=== PATIENT | male | born 1985 | race African-American/Black ===

== ENCOUNTER 2022-02-14 21:00 | Emergency (ER) | payer MEDICAID ==
[~2022-02-14] VITALS: Ht 185.4 cm; Wt 74.0 kg
[2022-02-14 22:39] LABS: HEMATOCRIT. 41.2 % (42.0-52.0); MEAN CORPUSCULAR HEMOGLOBIN 28.4 pg (28.0-32.0); MEAN CORPUSCULAR VOLUME 83.5 fL (80.0-94.0); MEAN PLATELET VOLUME 8.7 fl (7.4-10.4); PLATELET 214 x1000/uL (130-400); RED BLOOD CELL COUNT 4.94 mill/uL (4.7-6.1); RED CELL DISTRIBUTION WIDTH 14.8 % (11.6-14.6)
[2022-02-14 22:50] LABS: CHLORIDE 105 mEq/L (98-107)
[2022-02-14 22:57] LABS: PLATELET ESTIMATE NORMAL
[2022-02-14 22:58] LABS: ETHANOL BLOOD < 10 mg/dL
[2022-02-15] MEDS ORDERED: ACETAMINOPHEN 500MG TABLET PO ONE (04:30)
[2022-02-15 06:53] LABS: CLARITY URINE CLEAR (CLEAR); COLOR URINE YELLOW (YELLOW); KETONES URINE NEGATIVE (NEGATIVE); LEUKOCYTE ESTERASE URINE NEGATIVE (NEGATIVE); NITRITE URINE NEGATIVE (NEGATIVE); OCCULT BLOOD URINE 1+ (NEGATIVE); PH URINE 5.5 (4.5-8.0); PROTEIN URINE 3+ (NEGATIVE); UROBILINOGEN URINE 0.2 E.U./dL (0.2-1.0)
[2022-02-15 07:14] LABS: *AMPHETAMINES SCREEN URINE NEGATIVE (NEGATIVE); *BARBITURATES SCREEN URINE NEGATIVE (NEGATIVE); *BENZODIAZEPINES SCREEN URINE NEGATIVE (NEGATIVE); *COCAINE SCREEN URINE NEGATIVE (NEGATIVE); CANNABINOID URINE SCREEN NEGATIVE (NEGATIVE); METHADONE URINE SCREEN NEGATIVE (NEGATIVE); OPIATES URINE SCREEN NEGATIVE (NEGATIVE); PHENCYCLIDINE URINE SCREEN NEGATIVE (NEGATIVE)
[2022-02-15] MEDS ORDERED: ACETAMINOPHEN 325MG TABLET PO ONE ×2 (14:45→22:00)
[2022-02-15] MEDS: RISPERIDONE 1MG TABLET PO SCH (21:00)
[2022-02-16 08:00] VITALS: BP 151/96
[2022-02-16] MEDS: RISPERIDONE 1MG TABLET PO SCH (09:12)
== END 2022-02-16 10:57 | disposition home or self-care (01) ==
LOC: ER 21:00
DX: U07.1 COVID-19 (principal); R45.851 Suicidal ideations; Z59.00 Homelessness unspecified
CPT/HCPCS: 36415; 80053; 80305; 80307; 80320; 80329; 81001; 85025; 87426; 99285; C9803; G0480